=== PATIENT | male | born 1995 | race Caucasian/White ===

== ENCOUNTER 2017-08-30 11:58 | Emergency (ER) | payer OTHER ==
[~2017-08-30] VITALS: Ht 167.6 cm; Wt 104.5 kg
[2017-08-30 12:00] VITALS: BP 135/62; PULSE 74; TEMP 98.4
[2017-08-30] MEDS ORDERED: 00186-0370-20 IH (12:05)
== END 2017-08-30 12:52 | disposition home or self-care (01) ==
LOC: COL.ER 11:58
DX: S76.112A Strain of left quadriceps muscle, fascia and tendon, initial encounter (principal); M70.861 Other soft tissue disorders related to use, overuse and pressure, right lower leg; X50.3XXA Overexertion from repetitive movements, initial encounter; Y92.89 Other specified places as the place of occurrence of the external cause; Y99.0 Civilian activity done for income or pay